=== PATIENT | male | born 1965 | race Caucasian/White ===

== ENCOUNTER 2022-07-21 22:03 | Emergency (ER) | payer SELFPAY ==
[2022-07-21 22:11] VITALS: BP 136/64; PULSE 84; RESP 18; TEMP 98; BMI 23.5
[2022-07-21 23:53] LABS: URINE APPEARANCE CLEAR; URINE BILIRUBIN NEGATIVE (NEGATIVE); URINE COLOR YELLOW; URINE GLUCOSE (UA) NEGATIVE (NEGATIVE); URINE KETONE NEGATIVE (NEGATIVE); URINE LEUK ESTERASE NEGATIVE (NEGATIVE); URINE NITRITE NEGATIVE (NEGATIVE); URINE PROTEIN NEGATIVE (NEGATIVE); URINE UROBILINOGEN 0.2 mg/dL (0.2-1.0)
== END 2022-07-22 01:59 | disposition home or self-care (01) ==
LOC: JER 22:03
DX: R21 Rash and other nonspecific skin eruption (principal)
CPT/HCPCS: 81003; 82962; 87086; 93005; 93010; 99284-25

== ENCOUNTER 2024-08-27 03:01 | Emergency (ER) | payer SELFPAY ==
[2024-08-27 03:05] VITALS: BP 124/79; PULSE 79; RESP 20; TEMP 98; BMI 28.1
[2024-08-27] MEDS: PERMETHRIN 5% TOPICAL CREAM 60 GM TUBE TP ONE ×2 (04:01→04:02)
== END 2024-08-27 05:11 | disposition home or self-care (01) ==
LOC: JER 03:01
DX: S80.861A Insect bite (nonvenomous), right lower leg, initial encounter (principal); S80.862A Insect bite (nonvenomous), left lower leg, initial encounter; S20.96XA Insect bite (nonvenomous) of unspecified parts of thorax, initial encounter; M79.672 Pain in left foot; W57.XXXA Bitten or stung by nonvenomous insect and other nonvenomous arthropods, initial encounter
CPT/HCPCS: 99283-25